=== PATIENT | female | born 1965 | race Caucasian/White ===

== ENCOUNTER 2017-02-06 09:55 | Inpatient (IN) | payer OTHER ==
[2017-02-06 18:24] VITALS: BMI 23.0
--- NOTE | 2017-02-06 19:56 | HP ---
CIWA Score - CIWA Score Nausea/Vomitin Muscle Tremors: 3 Anxiety: 3 Agitation: 3 Paroxysmal Sweats: 2 Orientation: 0-Oriented Tacttile Disturbances: 2-Mild Itch/Numbness/Burn Auditory Disturbances: 2-Mild Harshness/Frighten Visual Disturbances: 2-Mild Sensitivity Headache: 2-Mild CIWA-Ar Total Score: 22 Admission ROS [facility] - HPI Chief Complaint: I NEED HELP TO STOP DRINKING ALCOHOL,KLONOPIN,HEROIN,MMTP 200 MGS/DAY,LAST 280 MGS/DAY,LAST MEDICATED TODAY BIPOLAR DISORDER NICOTINE DEPENDENCE LAST TREATMENT [facility] 11/22/15 TO 11/26/15 DETOX,REHAB FROM 11/26/15 TO 11/28/15 LONGEST PERIOD OF SOBRIETY 8 YEARS Allergies/Adverse Reactions: Allergies Allergy/AdvReac Type Severity Reaction Status Date / Time No Known Allergies Allergy Verified 02/06/17 18:57 - Ebola screening Have you traveled outside of the country in the last 21 days: No Have you had contact with anyone from an Ebola affected area: No Have you been sick,other than usual withdrawal symptoms: No - Review of Systems Constitutional: Chills, Loss of Appetite, Malaise, Night Sweats, Changes in sleep, Weakness, Unintentional Wgt. Loss EENT: reports: Tearing, Nose Congestion Respiratory: reports: No Symptoms reported, Other (ASTHMA) Cardiac: reports: No Symptoms Reported GI: reports: Diarrhea, Nausea, Vomiting, Abdominal cramping : reports: No Symptoms Reported Musculoskeletal: reports: Back Pain, Muscle Pain Integumentary: reports: Dryness Neuro: reports: Headache, Tremors Endocrine: reports: No Symptoms Reported Hematology: reports: No Symptoms Reported Psychiatric: reports: No Sypmtoms Reported, Judgement Intact, Mood/Affect Appropiate, Orientated x3 (BIPOLAR DISORDER) Patient History - Patient Medical History Hx Anemia: Yes (iron pill) Hx Asthma: Yes (ON ALBUTEROL) Hx Chronic Obstructive Pulmonary Disease (COPD): No Hx Cancer: No Hx Cardiac Disorders: No Hx Congestive Heart Failure: No Hx Hypertension: No Hx Hypercholesterolemia: No Hx Pacemaker: No HX Cerebrovascular Accident: No Hx Seizures: No Hx Dementia: No Hx Diabetes: No Hx Gastrointestinal Disorders: Yes Hx Liver Disease: No Hx Genitourinary Disorders: No Hx Sexually Transmitted Disorders: Yes (Syphillis with Tx) Hx Renal Disease (ESRD): No Hx Thyroid Disease: No Hx Human Immunodeficiency Virus (HIV): No (LAST 2016 NEGATIVE) Hx Hepatitis C: Yes (FOLLOW UP WITH PMD) Hx Depression: Yes (ON MED) Hx Suicide Attempt: No Hx Bipolar Disorder: Yes (ON MED) Hx Schizophrenia: No Other Medical History: NO SUICIDAL,NO HOMICIDAL - Patient Surgical History Past Surgical History: Yes Hx Neurologic Surgery: No Hx Cataract Extraction: No Hx Cardiac Surgery: No Hx Lung Surgery: No Hx Breast Surgery: No Hx Breast Biopsy: No Hx Abdominal Surgery: No Hx Appendectomy: No Hx Cholecystectomy: No Hx Genitourinary Surgery: No Hx Section: No Hx Orthopedic Surgery: Yes (BUNION REPAIR 10 years ago RIGHT) Hx Hysterectomy: No Anesthesia Reaction: No - PPD History Previous Implant?: No Documented Results: Negative w/o proof Date: 12/24/14 Results: 0mm - Reproductive History Last Menstrual Period: 05/25/15 Patient : No - Smoking Cessation Smoking history: Current every day smoker Have you smoked in the past 12 months: Yes Aproximately how many cigarettes per day: 3 Hx Chewing Tobacco Use: No Initiated information on smoking cessation: Yes 'Breaking Loose' booklet given: 02/06/17 - Substances Abused Alcohol Route: Oral Frequency: Daily Amount used: liquor- 1 pint, beer- 1 six pack Age of first use: 23 Date of Last Use: 02/06/17 Heroin Route: Injection Frequency: Daily Amount used: 2 bags Age of first use: 23 Date of Last Use: 02/06/17 Cocaine Route: Smoking Frequency: Daily Amount used: 60$ Age of first use: 17 Date of Last Use: 02/06/17 Benzodiazepine (Klonopin) Route: Oral Frequency: Daily Amount used: 1MG Age of first use: 46 Date of Last Use: 02/06/17 Family Disease History - Family Disease History Family Disease History: Other: Father (asthma ), Mother (asthma ) Admission Physical Exam [facility] - Vital Signs Vital Signs: Vital Signs - 24 hr 02/06/17 18:20 Temperature 96.2 F L Pulse Rate 79 Respiratory 20 Rate Blood Pressure 133/65 - Physical General Appearance: Yes: Moderate Distress, Tremorous, Irritable, Sweating, Anxious HEENTM: Yes: Normal ENT Inspection, JAVAN Respiratory: Yes: Lungs Clear, Normal Breath Sounds, No Respiratory Distress Neck: Yes: Within Normal Limits, Supple, Trachea in good position Breast: Yes: Breast Exam Deferred Cardiology: Yes: Within Normal Limits, Regular Rhythm, Regular Rate, S1, S2 Abdominal: Yes: Within Normal Limits, Normal Bowel Sounds, Non Tender, Flat, Soft Genitourinary: Yes: Within Normal Limits Musculoskeletal: Yes: Back pain, Muscle Pain Extremities: Yes: Within Normal Limits, Normal Range of Motion, Tremors Neurological: Yes: Within Normal Limits, student services dean II-XII NML intact, Fully Oriented, Alert, Motor Strength 5/5 Integumentary: Yes: Dry Lymphatic: Yes: Within Normal Limits - Diagnostic (1) Alcohol dependence with uncomplicated withdrawal Current Visit: No Status: Acute (2) Bipolar disorder Current Visit: No Status: Chronic (3) Hepatitis C Current Visit: No Status: Chronic Qualifiers: Viral hepatitis chronicity: chronic Hepatic coma status: without hepatic coma Qualified Code(s): B18.2 - Chronic viral hepatitis C; B18.2 - Chronic viral hepatitis C; B18.2 - Chronic viral hepatitis C; B18.2 - Chronic viral hepatitis C (4) Methadone maintenance therapy patient Current Visit: No Status: Chronic Comment: pt take 230mg daily last dose taken today. pending verification (5) Nicotine dependence Current Visit: No Status: Chronic Qualifiers: Nicotine product type: cigarettes Substance use status: uncomplicated Qualified Code(s): F17.210 - Nicotine dependence, cigarettes, uncomplicated; F17.210 - Nicotine dependence, cigarettes, uncomplicated (6) Opioid dependence Current Visit: No Status: Chronic (7) Tinea pedis Current Visit: No Status: Chronic (8) Uncomplicated sedative, hypnotic or anxiolytic withdrawal Current Visit: Yes Status: Acute (9) Bronchitis Current Visit: Yes Status: Acute Cleared for Admission [facility] - Detox or Rehab [facility] Level of Care: Medically Managed Detox Regimen/Protocol: Valium [facility] Breath Alcohol Content Breath Alcohol Content: 0 Urine Pregancy Test - Result Urine Test Results: Negative- NO Line Present Urine Drug Screen - Results Drug Screen Negative: No Urine Drug Screen Results: CHITRA-Cocaine, OPI-Opiates, BZO-Benzodiazepines, MTD- Methadone
[2017-02-06] MEDS ORDERED: MAGNESIUM HYDROX 2400MG/30ML ORAL SUSPENSION 30 ML CUP PO PRN (20:12)
[2017-02-06] MEDS ORDERED: ACETAMINOPHEN 325 MG TABLET (FP) PO PRN (20:12)
[2017-02-06] MEDS ORDERED: MAG HYDROX/AL HYDROX/SIMETH 30 ML UNIT-DOSE CUP PO PRN (20:12)
[2017-02-06] MEDS ORDERED: diazePAM 5 MG TABLET PO ONE (20:12)
[2017-02-06] MEDS ORDERED: LOPERAMIDE HCL 2 MG CAPSULE PO PRN (20:12)
[2017-02-06] MEDS ORDERED: MAGNESIUM CITRATE 300 ML BOTTLE PO PRN (20:12)
[2017-02-06] MEDS ORDERED: diphenhydrAMINE HCL 50 MG CAPSULE PO PRN (20:12)
[2017-02-06] MEDS ORDERED: IBUPROFEN 400 MG TABLET (FP) PO PRN (20:12)
[2017-02-06] MEDS ORDERED: P-EPHED 60MG/TRIPROLIDI 2.5MG TABLET PO PRN (20:12)
[2017-02-06] MEDS ORDERED: MENTHOL/PHENOL 1 EACH UD MM PRN (20:12)
[2017-02-06] MEDS ORDERED: ALBUTEROL SO4 18 GM HFA INHALER IH PRN (20:16)
[2017-02-06] MEDS: THIAMINE HCL 100 MG TABLET (FP) PO SCH (21:50)
[2017-02-06] MEDS: diazePAM 5 MG TABLET PO SCH (23:02)
[2017-02-06] MEDS: TOLNAFTATE 1% CREAM 15 GM TUBE TP SCH (23:09)
[2017-02-06] MEDS: AMOXICILLIN 500 MG CAPSULE (FP) PO SCH (23:12)
[2017-02-06 23:59] LABS: URINE APPEARANCE SLCLOUDY; URINE BILIRUBIN NEGATIVE (NEGATIVE); URINE BLOOD NEGATIVE (NEGATIVE); URINE COLOR YELLOW; URINE GLUCOSE (UA) NEGATIVE (NEGATIVE); URINE KETONE NEGATIVE (NEGATIVE); URINE LEUK ESTERASE TRACE (NEGATIVE); URINE NITRITE NEGATIVE (NEGATIVE); URINE PROTEIN NEGATIVE (NEGATIVE); URINE UROBILINOGEN NEGATIVE mg/dL (0.2-1.0)
[2017-02-07 00:01] LABS: URINE MUCUS RARE; URINE RBC 4 /hpf (0-3); URINE WBC 2 /hpf (3-5)
[2017-02-07] MEDS: AMOXICILLIN 500 MG CAPSULE (FP) PO SCH ×3 (06:56→22:39)
[2017-02-07] MEDS: diazePAM 5 MG TABLET PO SCH ×3 (06:56→22:40)
[2017-02-07] MEDS ORDERED: METHADONE HCL 40 MG DISPERSABLE TABLET PO ONE (09:57)
[2017-02-07 10:21] LABS: MCH 27.9 pg (25.7-33.7); MCHC 33.6 g/dl (32.0-36.0); MEAN CELL VOLUME 83.1 fl (80-96); MEAN PLT VOLUME 8.2 fl (7.5-11.1); PLATELET COUNT 221 K/MM3 (134-434); RDW 14.8 % (11.6-15.6); WHITE BLOOD COUNT 4.5 K/mm3 (4.0-10.0)
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
[2017-02-07] MEDS: TOLNAFTATE 1% CREAM 15 GM TUBE TP SCH ×2 (10:56→22:40)
[2017-02-07] MEDS: PRENATAL VITAMINS W/ FOLIC ACID TABLET (FP) PO SCH (10:56)
[2017-02-07] MEDS: diazePAM 5 MG TABLET PO PRN (10:56)
[2017-02-07 11:20] LABS: ALBUMIN 2.8 g/dl (3.4-5.0); ALK PHOS 75 U/L (45-117); ANION GAP 6 (8-16); BILIRUBIN,TOTAL 0.3 mg/dL (0.2-1.0); CALCIUM 8.4 mg/dL (8.5-10.1); CO2 27 mmol/L (21-32); CREATININE 0.7 mg/dL (0.55-1.02); GLUCOSE,RANDOM 97 mg/dL (74-106); SGOT/AST 12 U/L (15-37); SGPT/ALT 17 U/L (12-78); TOT PROT 6.2 g/dl (6.4-8.2)
[2017-02-07 11:49] LABS: HIV 1 & 2 AB NEGATIVE; HIV 1 AGp24 NEGATIVE
--- NOTE | 2017-02-07 12:26 | PN ---
[facility] CIWA - CIWA Score Nausea/Vomitin-No Nausea/No Vomiting Muscle Tremors: 3 Anxiety: 3 Agitation: 3 Paroxysmal Sweats: 3 Orientation: 0-Oriented Tacttile Disturbances: 0-None Auditory Disturbances: 0-None Visual Disturbances: 0-None Headache: 0-None Present CIWA-Ar Total Score: 12 S Progress Note (SOAP) Subjective: neuropathy to my right hand i was ordered gabapentin by my doctor and need to take it here agitation anxiety sweats interrupted sleep Objective: 02/07/17 12:25 Vital Signs Temperature 97.7 F 02/07/17 11:22 Pulse Rate 67 02/07/17 11:22 Respiratory Rate 20 02/07/17 11:22 Blood Pressure 114/74 02/07/17 11:22 O2 Sat by Pulse Oximetry (%) Laboratory Tests 02/06/17 02/07/17 02/07/17 23:45 07:00 07:00 WBC 4.5 D RBC 4.12 Hgb 11.5 Hct 34.2 MCV 83.1 MCH 27.9 MCHC 33.6 RDW 14.8 D Plt Count 221 MPV 8.2 Sodium Potassium Chloride Carbon Dioxide Anion Gap BUN Creatinine Creat Clearance w eGFR Random Glucose Calcium Total Bilirubin AST ALT Alkaline Phosphatase Ammonia Total Protein Albumin Urine Color Yellow Urine Appearance Slcloudy Urine pH 5.0 Ur Specific [place] >= 1.030 H Urine Protein Negative Urine Glucose (UA) Negative Urine Ketones Negative Urine Blood Negative Urine Nitrite Negative Urine Bilirubin Negative Urine Urobilinogen Negative Urine RBC 4 Urine WBC 2 Ur Epithelial Cells Rare Urine Mucus Rare RPR Titer HIV 1&2 Antibody Screen Negative HIV P24 Antigen Negative 02/07/17 02/07/17 02/07/17 07:00 07:00 07:00 WBC RBC Hgb Hct MCV MCH MCHC RDW Plt Count MPV Sodium 142 Potassium 4.4 D Chloride 109 H Carbon Dioxide 27 Anion Gap 6 L BUN 22 H D Creatinine 0.7 D Creat Clearance w eGFR > 60 Random Glucose 97 Calcium 8.4 L Total Bilirubin 0.3 AST 12 L D ALT 17 D Alkaline Phosphatase 75 D Ammonia 58.93 H Total Protein 6.2 L Albumin 2.8 L Urine Color Urine Appearance Urine pH Ur Specific [place] Urine Protein Urine Glucose (UA) Urine Ketones Urine Blood Urine Nitrite Urine Bilirubin Urine Urobilinogen Urine RBC Urine WBC Ur Epithelial Cells Urine Mucus RPR Titer Nonreactive HIV 1&2 Antibody Screen HIV P24 Antigen aaox3 ambulating no acute distress labs noted no further tx for ammonia level ordered. pt is not confused. Assessment: 02/07/17 12:26 withdrawal sx Plan: continue detox gabapentin 100mg tid increase fluids
[2017-02-07] MEDS: GABAPENTIN 100 MG CAPSULE (FP) PO SCH ×2 (13:11→22:39)
--- NOTE | 2017-02-07 14:21 | EKG ---
Test Reason : Blood Pressure : / mmHG Vent. Rate : 060 BPM Atrial Rate : 060 BPM P-R Int : 142 ms QRS Dur : 086 ms QT Int : 468 ms P-R-T Axes : 007 080 036 degrees QTc Int : 468 ms NORMAL SINUS RHYTHM NORMAL ECG NO PREVIOUS ECGS AVAILABLE Confirmed by SARAH CRANDALL MD ([id number]) on 02/07/2017 2:21:10 PM Referred By: Confirmed By:SARAH CRANDALL MD
[2017-02-07] MEDS: ZOLPIDEM TARTRATE 5 MG TABLET PO PRN (22:39)
[2017-02-07] MEDS: MIRTAZAPINE 30 MG TABLET (FP) PO SCH ×2 (22:39→22:42)
[2017-02-07] MEDS: THIAMINE HCL 100 MG TABLET (FP) PO SCH (22:40)
[2017-02-08] MEDS: GABAPENTIN 100 MG CAPSULE (FP) PO SCH ×3 (05:35→22:32)
[2017-02-08] MEDS: METHADONE HCL 40 MG DISPERSABLE TABLET PO SCH (05:36)
[2017-02-08] MEDS: guaiFENesin/D-METHORPHAN HB 10 ML UNIT-DOSE CUPS PO PRN ×2 (05:39→10:56)
[2017-02-08] MEDS: AMOXICILLIN 500 MG CAPSULE (FP) PO SCH ×3 (07:25→22:32)
[2017-02-08] MEDS: TOLNAFTATE 1% CREAM 15 GM TUBE TP SCH ×2 (10:55→23:53)
[2017-02-08] MEDS: PRENATAL VITAMINS W/ FOLIC ACID TABLET (FP) PO SCH (10:55)
[2017-02-08] MEDS: diazePAM 5 MG TABLET PO SCH ×2 (10:55→22:32)
--- NOTE | 2017-02-08 12:32 | PN ---
[facility] CIWA - CIWA Score Nausea/Vomitin-No Nausea/No Vomiting Muscle Tremors: 3 Anxiety: 2 Agitation: 4-Moderately Restless Paroxysmal Sweats: 2 Orientation: 0-Oriented Tacttile Disturbances: 0-None Auditory Disturbances: 0-None Visual Disturbances: 0-None Headache: 0-None Present CIWA-Ar Total Score: 11 S Progress Note (SOAP) Subjective: anxiety restless sweats Objective: 02/08/17 12:31 Vital Signs Temperature 98.2 F 02/08/17 10:00 Pulse Rate 65 02/08/17 10:00 Respiratory Rate 16 02/08/17 10:00 Blood Pressure 91/54 02/08/17 10:00 O2 Sat by Pulse Oximetry (%) Laboratory Tests 02/06/17 02/07/17 02/07/17 23:45 07:00 07:00 WBC 4.5 D RBC 4.12 Hgb 11.5 Hct 34.2 MCV 83.1 MCH 27.9 MCHC 33.6 RDW 14.8 D Plt Count 221 MPV 8.2 Sodium Potassium Chloride Carbon Dioxide Anion Gap BUN Creatinine Creat Clearance w eGFR Random Glucose Calcium Total Bilirubin AST ALT Alkaline Phosphatase Ammonia Total Protein Albumin Urine Color Yellow Urine Appearance Slcloudy Urine pH 5.0 Ur Specific [place] >= 1.030 H Urine Protein Negative Urine Glucose (UA) Negative Urine Ketones Negative Urine Blood Negative Urine Nitrite Negative Urine Bilirubin Negative Urine Urobilinogen Negative Urine RBC 4 Urine WBC 2 Ur Epithelial Cells Rare Urine Mucus Rare RPR Titer HIV 1&2 Antibody Screen Negative HIV P24 Antigen Negative 02/07/17 02/07/17 02/07/17 07:00 07:00 07:00 WBC RBC Hgb Hct MCV MCH MCHC RDW Plt Count MPV Sodium 142 Potassium 4.4 D Chloride 109 H Carbon Dioxide 27 Anion Gap 6 L BUN 22 H D Creatinine 0.7 D Creat Clearance w eGFR > 60 Random Glucose 97 Calcium 8.4 L Total Bilirubin 0.3 AST 12 L D ALT 17 D Alkaline Phosphatase 75 D Ammonia 58.93 H Total Protein 6.2 L Albumin 2.8 L Urine Color Urine Appearance Urine pH Ur Specific [place] Urine Protein Urine Glucose (UA) Urine Ketones Urine Blood Urine Nitrite Urine Bilirubin Urine Urobilinogen Urine RBC Urine WBC Ur Epithelial Cells Urine Mucus RPR Titer Nonreactive HIV 1&2 Antibody Screen HIV P24 Antigen aaox3 ambulating no acute distress Assessment: 02/08/17 12:32 withdrawal sx Plan: continue detox increase fluids
[2017-02-08] MEDS: diazePAM 5 MG TABLET PO PRN (14:52)
[2017-02-08] MEDS: ZOLPIDEM TARTRATE 5 MG TABLET PO PRN (22:32)
[2017-02-08] MEDS: MIRTAZAPINE 30 MG TABLET (FP) PO SCH (22:32)
[2017-02-08] MEDS: THIAMINE HCL 100 MG TABLET (FP) PO SCH (22:32)
[2017-02-09] MEDS: GABAPENTIN 100 MG CAPSULE (FP) PO SCH ×3 (06:01→22:50)
[2017-02-09] MEDS: AMOXICILLIN 500 MG CAPSULE (FP) PO SCH ×3 (06:01→22:50)
[2017-02-09] MEDS: METHADONE HCL 40 MG DISPERSABLE TABLET PO SCH (06:02)
[2017-02-09] MEDS: PRENATAL VITAMINS W/ FOLIC ACID TABLET (FP) PO SCH (10:56)
[2017-02-09] MEDS: diazePAM 5 MG TABLET PO SCH ×2 (10:56→22:51)
[2017-02-09] MEDS: TOLNAFTATE 1% CREAM 15 GM TUBE TP SCH ×2 (10:56→22:51)
[2017-02-09] MEDS: guaiFENesin/D-METHORPHAN HB 10 ML UNIT-DOSE CUPS PO PRN (10:57)
--- NOTE | 2017-02-09 14:14 | PN ---
[facility] Progress Note (SOAP) Subjective: Sweating,interrupted sleep,restless Objective: 02/09/17 14:12 Vital Signs - 8 hr 02/09/17 10:00 Temperature 97.9 F Pulse Rate 67 Respiratory 18 Rate Blood Pressure 103/67 Laboratory Tests 02/06/17 02/07/17 02/07/17 23:45 07:00 07:00 WBC 4.5 D RBC 4.12 Hgb 11.5 Hct 34.2 MCV 83.1 MCH 27.9 MCHC 33.6 RDW 14.8 D Plt Count 221 MPV 8.2 Sodium Potassium Chloride Carbon Dioxide Anion Gap BUN Creatinine Creat Clearance w eGFR Random Glucose Calcium Total Bilirubin AST ALT Alkaline Phosphatase Ammonia Total Protein Albumin Urine Color Yellow Urine Appearance Slcloudy Urine pH 5.0 Ur Specific [place] >= 1.030 H Urine Protein Negative Urine Glucose (UA) Negative Urine Ketones Negative Urine Blood Negative Urine Nitrite Negative Urine Bilirubin Negative Urine Urobilinogen Negative Urine RBC 4 Urine WBC 2 Ur Epithelial Cells Rare Urine Mucus Rare RPR Titer HIV 1&2 Antibody Screen Negative HIV P24 Antigen Negative 02/07/17 02/07/17 02/07/17 07:00 07:00 07:00 WBC RBC Hgb Hct MCV MCH MCHC RDW Plt Count MPV Sodium 142 Potassium 4.4 D Chloride 109 H Carbon Dioxide 27 Anion Gap 6 L BUN 22 H D Creatinine 0.7 D Creat Clearance w eGFR > 60 Random Glucose 97 Calcium 8.4 L Total Bilirubin 0.3 AST 12 L D ALT 17 D Alkaline Phosphatase 75 D Ammonia 58.93 H Total Protein 6.2 L Albumin 2.8 L Urine Color Urine Appearance Urine pH Ur Specific [place] Urine Protein Urine Glucose (UA) Urine Ketones Urine Blood Urine Nitrite Urine Bilirubin Urine Urobilinogen Urine RBC Urine WBC Ur Epithelial Cells Urine Mucus RPR Titer Nonreactive HIV 1&2 Antibody Screen HIV P24 Antigen labs noted Assessment: 02/09/17 14:13 Withdrawal sx. Plan: Continue detox
[2017-02-09] MEDS: ZOLPIDEM TARTRATE 5 MG TABLET PO PRN (22:50)
[2017-02-09] MEDS: THIAMINE HCL 100 MG TABLET (FP) PO SCH (22:51)
[2017-02-09] MEDS: MIRTAZAPINE 30 MG TABLET (FP) PO SCH (22:52)
[2017-02-10] MEDS: GABAPENTIN 100 MG CAPSULE (FP) PO SCH (06:05)
[2017-02-10] MEDS: AMOXICILLIN 500 MG CAPSULE (FP) PO SCH (06:05)
[2017-02-10] MEDS: METHADONE HCL 40 MG DISPERSABLE TABLET PO SCH (06:10)
[2017-02-10 07:01] VITALS: BP 128/68; PULSE 89; TEMP 97.9
[2017-02-10] MEDS: guaiFENesin/D-METHORPHAN HB 10 ML UNIT-DOSE CUPS PO PRN (07:18)
--- NOTE | 2017-02-10 09:02 | DS ---
[facility] Detox Discharge Summary Admission Date: 02/06/17 Discharge Date: 02/11/17 - History Present History: Alcohol Dependence, Sedative Dependence Additional Comments: FOLLOW UP WITH AFTER CARE PROGRAM ARRANGEMENT Pertinent Past History: HEPATITIS C NICOTINE DEPENDENCE [facility] - Physical Exam Results Vital Signs: Vital Signs Temperature 97.9 F 02/10/17 06:00 Pulse Rate 89 02/10/17 06:00 Respiratory Rate 18 02/10/17 06:00 Blood Pressure 128/68 02/10/17 06:00 O2 Sat by Pulse Oximetry (%) Pertinent Admission Physical Exam Findings: WITHDRAWAL SYMPTOM - Treatment Hospital Course: Detox Protocol Followed, Detoxed Safely, Responded well, Discharged Condition Good, Rehab Referral Accepted Patient has Accepted a Rehab Referral to: [facility] - Medication Discharge Medications: Ambulatory Orders Clonazepam [Klonopin] 2 mg PO BID 11/22/15 Mirtazapine [Remeron -] 30 mg PO HS #30 tablet 11/23/15 Albuterol Sulfate Inhaler - [Ventolin Hfa Inhaler -] 2 inh PO Q4H PRN 11/26/15 Lactulose (Oral Use) [Cephulac -] 20 gm PO TID 7 Days 11/26/15 Methadone [Dolophine -] 280 mg PO DAILY 11/26/15 Mirtazapine [Remeron -] 30 mg PO HS #30 tablet 02/07/17 - Diagnosis (1) Alcohol dependence with uncomplicated withdrawal Current Visit: No Status: Acute (2) Bipolar disorder Current Visit: No Status: Chronic (3) Hepatitis C Current Visit: Yes Status: Chronic Qualifiers: Viral hepatitis chronicity: chronic Hepatic coma status: without hepatic coma Qualified Code(s): B18.2 - Chronic viral hepatitis C; B18.2 - Chronic viral hepatitis C; B18.2 - Chronic viral hepatitis C; B18.2 - Chronic viral hepatitis C (4) Methadone maintenance therapy patient Current Visit: Yes Status: Chronic (5) Nicotine dependence Current Visit: No Status: Chronic Qualifiers: Nicotine product type: cigarettes Substance use status: uncomplicated Qualified Code(s): F17.210 - Nicotine dependence, cigarettes, uncomplicated; F17.210 - Nicotine dependence, cigarettes, uncomplicated (6) Opioid dependence Current Visit: No Status: Chronic (7) Tinea pedis Current Visit: Yes Status: Chronic (8) Uncomplicated sedative, hypnotic or anxiolytic withdrawal Current Visit: Yes Status: Acute (9) Bronchitis Current Visit: Yes Status: Acute - AMA Did Patient Leave Against Medical Advice: No
[2017-02-10] MEDS: PRENATAL VITAMINS W/ FOLIC ACID TABLET (FP) PO SCH (09:03)
[2017-02-10] MEDS ORDERED: diazePAM 5 MG TABLET PO SCH (10:00)
== END 2017-02-10 09:32 | disposition home or self-care (01) | DRG 773 ==
LOC: YASAS 09:55 → Y6N 18:45
PROVIDERS: ADMIT Internal Medicine; ATTEND Internal Medicine
PROC: HZ2ZZZZ Detoxification Services for Substance Abuse Treatment (ICD-10-PCS; principal; 2017-02-06)
DX: F10.230 Alcohol dependence with withdrawal, uncomplicated (principal); F13.230 Sedative, hypnotic or anxiolytic dependence with withdrawal, uncomplicated; F11.20 Opioid dependence, uncomplicated; F14.20 Cocaine dependence, uncomplicated; F17.210 Nicotine dependence, cigarettes, uncomplicated; F31.9 Bipolar disorder, unspecified; J40 Bronchitis, not specified as acute or chronic; J45.909 Unspecified asthma, uncomplicated; B18.2 Chronic viral hepatitis C; D64.9 Anemia, unspecified; Z87.42 Personal history of other diseases of the female genital tract
CPT/HCPCS: 36415; 80053; 81003; 81015; 82140; 85027; 86593; 87389; 93005; 93010

== ENCOUNTER 2017-02-15 10:17 | Inpatient (IN) | payer OTHER ==
[2017-02-15 11:44] VITALS: BMI 25.5
--- NOTE | 2017-02-15 13:42 | HP ---
Admission [facility] Allergies/Adverse Reactions: Allergies Allergy/AdvReac Type Severity Reaction Status Date / Time No Known Allergies Allergy Verified 02/15/17 12:09 - Ebola screening Have you traveled outside of the country in the last 21 days: No Have you had contact with anyone from an Ebola affected area: No Have you been sick,other than usual withdrawal symptoms: No Do you have a fever: No Patient History - Patient Medical History Hx Anemia: Yes (iron pill) Hx Asthma: Yes (ON ALBUTEROL) Hx Chronic Obstructive Pulmonary Disease (COPD): No Hx Cancer: No Hx Cardiac Disorders: No Hx Congestive Heart Failure: No Hx Hypertension: No Hx Hypercholesterolemia: No Hx Pacemaker: No HX Cerebrovascular Accident: No Hx Seizures: No Hx Dementia: No Hx Diabetes: No Hx Gastrointestinal Disorders: Yes Hx Liver Disease: No Hx Genitourinary Disorders: No Hx Sexually Transmitted Disorders: Yes (Syphillis with Tx) Hx Renal Disease (ESRD): No Hx Thyroid Disease: No Hx Human Immunodeficiency Virus (HIV): No (LAST 2016 NEGATIVE) Hx Hepatitis C: Yes (FOLLOW UP WITH PMD) Hx Depression: Yes (ON MED) Hx Suicide Attempt: No Hx Bipolar Disorder: Yes (ON MED) Hx Schizophrenia: No - Patient Surgical History Past Surgical History: Yes Hx Neurologic Surgery: No Hx Cataract Extraction: No Hx Cardiac Surgery: No Hx Lung Surgery: No Hx Breast Surgery: No Hx Breast Biopsy: No Hx Abdominal Surgery: No Hx Appendectomy: No Hx Cholecystectomy: No Hx Genitourinary Surgery: No Hx Section: No Hx Orthopedic Surgery: Yes (BUNION REPAIR 10 years ago RIGHT) Hx Hysterectomy: No Anesthesia Reaction: No - PPD History Date: 02/08/17 Results: 0mm - Reproductive History Last Menstrual Period: 05/25/15 - Smoking Cessation Smoking history: Current every day smoker Have you smoked in the past 12 months: Yes Aproximately how many cigarettes per day: 3 Hx Chewing Tobacco Use: No Initiated information on smoking cessation: Yes 'Breaking Loose' booklet given: 02/15/17 - Substances Abused Alcohol Route: Oral Frequency: Daily Amount used: 6PK BEER Age of first use: 14 Date of Last Use: 02/13/17 Crack Route: Smoking Frequency: Daily Amount used: $50 Age of first use: 26 Date of Last Use: 02/15/17 Heroin Route: Injection Frequency: 1-2 times per week Amount used: 10 BAGS Age of first use: 13 Date of Last Use: 02/14/17 Family Disease History - Family Disease History Family Disease History: Other: Father (asthma ), Mother (asthma ) Admission Physical Exam [facility] - Vital Signs Vital Signs: Vital Signs - 24 hr 02/15/17 11:37 Temperature 97.4 F L Pulse Rate 79 Respiratory 20 Rate Blood Pressure 111/67 Cleared for Admission [facility] - Detox or Rehab Clae[facility] for Rehab Admission: Yes [facility] Breath Alcohol Content Breath Alcohol Content: 0 Urine Pregancy Test - Result Urine Test Results: Negative- NO Line Present Urine Drug Screen - Results Drug Screen Negative: No Urine Drug Screen Results: CHITRA-Cocaine, OPI-Opiates, BZO-Benzodiazepines, MTD- Methadone Inpatient Rehab Admission - Initial Determination Are CD services needed?: Yes Free of communicable disease: Yes Not in need of hospitalization: Yes - Rehab Admission Criteria Poor recovery environment: Yes Comorbidities: Yes Patient is meeting Inpatient Rehab admission criteria:: Yes
--- NOTE | 2017-02-15 13:45 | HP ---
[facility] Re[facility] Assess/Revision - Admission History Admitted to Rehab from: [address] [place] Date of Admission to Rehab: 02/15/17 - Vital signs Vital Signs: Vital Signs Period Temp Pulse Resp BP Sys/[place] Pulse Ox Last 24 Hr 97.4 F 79 20 111/67 - Findings Detox History & Physical reviewed: Yes Concur with findings: Yes (for rehab as ptotocol)
[2017-02-15] MEDS ORDERED: ALBUTEROL SO4 18 GM HFA INHALER IH PRN ×2 (13:48→15:44)
[2017-02-15] MEDS ORDERED: PNEUMOC 13-VAL CONJ-DIP CRM/PF 0.5 ML DISP.SYRIN IM ONE (15:38)
[2017-02-15] MEDS ORDERED: diphenhydrAMINE HCL 50 MG CAPSULE PO PRN (15:43)
[2017-02-15] MEDS ORDERED: IBUPROFEN 400 MG TABLET (FP) PO PRN (15:43)
[2017-02-15] MEDS ORDERED: ACETAMINOPHEN 325 MG TABLET (FP) PO PRN (15:43)
[2017-02-15] MEDS ORDERED: MAGNESIUM CITRATE 300 ML BOTTLE PO PRN (15:43)
[2017-02-15] MEDS ORDERED: P-EPHED 60MG/TRIPROLIDI 2.5MG TABLET PO PRN (15:43)
[2017-02-15] MEDS ORDERED: MAG HYDROX/AL HYDROX/SIMETH 30 ML UNIT-DOSE CUP PO PRN (15:43)
[2017-02-15] MEDS ORDERED: MAGNESIUM HYDROX 2400MG/30ML ORAL SUSPENSION 30 ML CUP PO PRN (15:43)
[2017-02-15] MEDS ORDERED: MENTHOL/PHENOL 1 EACH UD MM PRN (15:43)
[2017-02-15] MEDS ORDERED: LOPERAMIDE HCL 2 MG CAPSULE PO PRN (15:43)
[2017-02-15] MEDS: NICOTINE 14 MG/24 HOURS TOPICAL PATCH TD SCH (17:19)
[2017-02-15] MEDS: guaiFENesin/D-METHORPHAN HB 10 ML UNIT-DOSE CUPS PO PRN (21:38)
[2017-02-15] MEDS: THIAMINE HCL 100 MG TABLET (FP) PO SCH (21:40)
[2017-02-16] MEDS: guaiFENesin/D-METHORPHAN HB 10 ML UNIT-DOSE CUPS PO PRN ×2 (06:06→21:27)
[2017-02-16] MEDS: METHADONE HCL 40 MG DISPERSABLE TABLET PO SCH (06:22)
[2017-02-16] MEDS: PRENATAL VITAMINS W/ FOLIC ACID TABLET (FP) PO SCH (09:35)
[2017-02-16] MEDS: NICOTINE 14 MG/24 HOURS TOPICAL PATCH TD SCH (09:37)
[2017-02-16] MEDS ORDERED: PNEUMOCOCCAL 23 VACCINE 0.5 ML VIAL IM ONE (12:00)
[2017-02-16] MEDS ORDERED: FLU VACCINE QUAD 60 MCG/0.5 ML (MDV 17-18) IM ONE (12:00)
[2017-02-16 13:25] LABS: HIV 1 & 2 AB NEGATIVE; HIV 1 AGp24 NEGATIVE
[2017-02-16] MEDS: hydrOXYzine PAMOATE 50 MG CAPSULE (FP) PO PRN (17:21)
--- NOTE | 2017-02-16 18:40 | PN ---
[facility] Progress Note Note: Psychiatry Attending's seasonal greenery bundler note : Called to enter order for remeron. Patient is already known to this scientific technical writer. Was on remeron 30 mg/hs while on [address] Weinstein's note of 02/07/17 for details. Plan : Remeron 15 mg po hs.Ordered. Went to [address].Met with patient. In the presence of two nurses on duty. Ms Blanco is clearly medication-seeking. Manipulative and impulsive.Patient is redirected. She abruptly ended the meeting.Went to her room.
[2017-02-16] MEDS: MIRTAZAPINE 15 MG TABLET (FP) PO SCH (21:27)
[2017-02-16] MEDS: THIAMINE HCL 100 MG TABLET (FP) PO SCH (21:27)
[2017-02-17] MEDS: guaiFENesin/D-METHORPHAN HB 10 ML UNIT-DOSE CUPS PO PRN ×2 (06:09→21:21)
[2017-02-17] MEDS: METHADONE HCL 40 MG DISPERSABLE TABLET PO SCH (06:09)
[2017-02-17] MEDS: PRENATAL VITAMINS W/ FOLIC ACID TABLET (FP) PO SCH (10:19)
[2017-02-17] MEDS: NICOTINE 14 MG/24 HOURS TOPICAL PATCH TD SCH (10:20)
[2017-02-17] MEDS: hydrOXYzine PAMOATE 50 MG CAPSULE (FP) PO PRN ×3 (10:20→18:51)
[2017-02-17] MEDS: MIRTAZAPINE 15 MG TABLET (FP) PO SCH (21:20)
[2017-02-17] MEDS: THIAMINE HCL 100 MG TABLET (FP) PO SCH (21:20)
[2017-02-18] MEDS: hydrOXYzine PAMOATE 50 MG CAPSULE (FP) PO PRN (04:48)
[2017-02-18] MEDS: METHADONE HCL 40 MG DISPERSABLE TABLET PO SCH (06:06)
[2017-02-18 07:28] VITALS: BP 118/78; PULSE 76; TEMP 97.9
[2017-02-18] MEDS: NICOTINE 14 MG/24 HOURS TOPICAL PATCH TD SCH (09:17)
[2017-02-18] MEDS: PRENATAL VITAMINS W/ FOLIC ACID TABLET (FP) PO SCH (09:17)
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
--- NOTE | 2017-02-19 07:24 | EKG ---
Test Reason : Blood Pressure : / mmHG Vent. Rate : 059 BPM Atrial Rate : 059 BPM P-R Int : 142 ms QRS Dur : 088 ms QT Int : 470 ms P-R-T Axes : 000 073 038 degrees QTc Int : 465 ms SINUS BRADYCARDIA OTHERWISE NORMAL ECG WHEN COMPARED WITH ECG OF 06-FEB-2017 21:01, NO SIGNIFICANT CHANGE WAS FOUND Confirmed by LAURIE PARSONS MD ([id number]) on 02/19/2017 7:23:58 AM Referred By: Ame Briones Confirmed By:LAURIE PARSONS MD
== END 2017-02-18 10:21 | disposition left against medical advice (07) | DRG 770 ==
LOC: YASAS 10:17 → Y3E 13:54
PROVIDERS: ADMIT Psychiatry & Neurology Psychiatry; ATTEND Psychiatry & Neurology Psychiatry
PROC: HZ42ZZZ Group Counseling for Substance Abuse Treatment, Cognitive-Behavioral (ICD-10-PCS; principal; 2017-02-15)
DX: F13.20 Sedative, hypnotic or anxiolytic dependence, uncomplicated (principal); F10.20 Alcohol dependence, uncomplicated; F14.20 Cocaine dependence, uncomplicated; F31.9 Bipolar disorder, unspecified; B18.2 Chronic viral hepatitis C; R55 Syncope and collapse; J20.9 Acute bronchitis, unspecified; Z87.42 Personal history of other diseases of the female genital tract
CPT/HCPCS: 36415; 87389; 93005; 93010

== ENCOUNTER 2018-07-01 11:43 | Inpatient (IN) | payer OTHER ==
[2018-07-01 13:26] VITALS: BMI 23.8
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
[2018-07-01] MEDS ORDERED: NICOTINE POLACRILEX 2 MG GUM BC PRN (14:03)
[2018-07-01] MEDS ORDERED: MAG HYDROX/AL HYDROX/SIMETH 30 ML UNIT-DOSE CUP PO PRN (14:03)
[2018-07-01] MEDS ORDERED: ACETAMINOPHEN 325 MG TABLET (FP) PO PRN (14:03)
[2018-07-01] MEDS ORDERED: IBUPROFEN 400 MG TABLET (FP) PO PRN (14:03)
[2018-07-01] MEDS ORDERED: MAGNESIUM CITRATE 300 ML BOTTLE PO PRN (14:03)
[2018-07-01] MEDS ORDERED: MENTHOL/PHENOL 1 EACH UD MM PRN (14:03)
[2018-07-01] MEDS ORDERED: chlordiazePOXIDE HCL 25 MG CAPSULE PO PRN (14:03)
[2018-07-01] MEDS ORDERED: MAGNESIUM HYDROX 2400MG/30ML ORAL SUSPENSION 30 ML CUP PO PRN (14:03)
[2018-07-01] MEDS ORDERED: ALBUTEROL SO4 0.083% IH SOL 2.5 MG/3 ML VIAL.NEB. NEB PRN (14:06)
[2018-07-01] MEDS: chlordiazePOXIDE HCL 25 MG CAPSULE PO SCH ×2 (18:08→22:16)
[2018-07-01] MEDS ORDERED: MELATONIN 5 MG TABLETS PO PRN (22:00)
[2018-07-01] MEDS: THIAMINE HCL 100 MG TABLET (FP) PO SCH (22:16)
[2018-07-02] MEDS: chlordiazePOXIDE HCL 25 MG CAPSULE PO SCH ×4 (05:37→22:13)
--- NOTE | 2018-07-02 07:49 | CONSULT ---
[facility] Psychiatric Consult - Data Date of interview: 07/02/18 Admission source: [facility] Identifying data: This is a 53 years old female, , childless, living with family, unemployed, on SSI support, with psychiatric hospitalization history is here requesting detox Patient reports history of Bipolar Disorder, history of Alcohol, Benzodiazepins and Nicotine dependence. Currently on MMTP 175mg/day Substance Abuse History: - Smoking Cessation. Smoking history: Current every day smoker. Have you smoked in the past 12 months: Yes. Aproximately how many cigarettes per day: 3. Hx Chewing Tobacco Use: No. Initiated information on smoking cessation: No. - Substances Abused. Alcohol. Route: Oral. Frequency: Daily. Amount used: beer - 2 six pack. Age of first use: 15. Date of Last Use: 07/01/18 Medical History: HepC+, Cervical back pain, Chronic bronchitis history, MMTP 175 /day Psychiatric History: Patient reports history of Bipolar Disorder, as per chart patient had a suicidal attempt by OD on 08/2017, patient reports it was not a suicidal attempt, it was just overdaose with street drugs. Debies suicidal, nomicidal history. Currently on: Buspar 10mg po bid. Remeron 30mg po qhs. Gabapentin 600mg po tid Physical/Sexual Abuse/Trauma History: Denies Additional Comment: Buspar 10mg po bid. Remeron 30mg po qhs. Gabapentin 600mg po tid Mental Status Exam - Mental Status Exam Alert and Oriented to: Person Cognitive Function: Fair Patient Appearance: Unkempt Mood: Apprehensive Affect: Mood Congruent Patient Behavior: Cooperative Speech Pattern: Appropriate Voice Loudness: Mildly Soft/Quiet Thought Process: Circumstantial, Goal Oriented Thought Disorder: Being Controlled Hallucinations: Denies Suicidal Ideation: Denies Homicidal Ideation: Denies Insight/Judgement: Fair Sleep: Difficulty falling asleep Appetite: Fair Muscle strength/Tone: Mild Hypotonicity Gait/Station: Normal Additional Comments: Buspar 10mg po bid. Remeron 30mg po qhs. Gabapentin 600mg po tid Psychiatric Findings - Problem List ([place] 1, 2,3) (1) Alcohol dependence with uncomplicated withdrawal Current Visit: No Status: Acute (2) Uncomplicated sedative, hypnotic or anxiolytic withdrawal Current Visit: No Status: Acute (3) Alcohol dependence Current Visit: No Status: Chronic (4) Benzodiazepine dependence Current Visit: No Status: Chronic (5) Bipolar disorder Current Visit: No Status: Chronic (6) Cocaine dependence Current Visit: No Status: Chronic Qualifiers: Substance use status: uncomplicated Qualified Code(s): F14.20 - Cocaine dependence, uncomplicated (7) Cocaine dependence in controlled environment Current Visit: No Status: Chronic (8) Cocaine dependence, continuous use Current Visit: No Status: Chronic (9) Methadone maintenance therapy patient Current Visit: No Status: Chronic Comment: pt take 75 mg daily last dose taken today. pending verification (10) Opioid dependence Current Visit: No Status: Chronic (11) Cervical neck pain with evidence of disc disease Current Visit: No Status: Chronic (12) Chronic bronchitis Current Visit: No Status: Chronic Qualifiers: Chronic bronchitis type: simple Qualified Code(s): J41.0 - Simple chronic bronchitis (13) Hepatitis C Current Visit: No Status: Chronic Qualifiers: Viral hepatitis chronicity: chronic Hepatic coma status: without hepatic coma Qualified Code(s): B18.2 - Chronic viral hepatitis C - Initial Treatment Plan Initial Treatment Plan: Buspar 10mg po bid. Remeron 30mg po qhs. Gabapentin 600mg po tid
[2018-07-02] MEDS ORDERED: METHADONE HCL 10 MG TABLET PO ONE (08:57)
[2018-07-02] MEDS ORDERED: METHADONE HCL 5 MG TABLET ONE (09:41)
[2018-07-02] MEDS ORDERED: METHADONE HCL 10 MG TABLET ONE (09:42)
[2018-07-02] MEDS ORDERED: METHADONE HCL 40 MG DISPERSABLE TABLET ONE (09:42)
[2018-07-02] MEDS ORDERED: METHADONE 160 MG, METHADONE 10 MG, METHADONE 5 MG PO ONE (09:45)
[2018-07-02] MEDS: PRENATAL VITAMINS W/ FOLIC ACID TABLET (FP) PO SCH (10:37)
[2018-07-02] MEDS: busPIRone HCL 10 MG TABLET (FP) PO SCH ×2 (10:37→22:13)
[2018-07-02] MEDS ORDERED: COLLOIDAL OATMEAL 1 BAR EACH TP PRN (11:14)
--- NOTE | 2018-07-02 11:14 | PN ---
S CIWA - CIWA Score Nausea/Vomitin-No Nausea/No Vomiting Muscle Tremors: 4-Moderate,w/Arms Extend Anxiety: 3 Agitation: 3 Paroxysmal Sweats: 3 Orientation: 0-Oriented Tacttile Disturbances: 0-None Auditory Disturbances: 0-None Visual Disturbances: 0-None Headache: 0-None Present CIWA-Ar Total Score: 13 S Progress Note (SOAP) Subjective: dry itchy skin sweats irritable agitation teary watery eye Objective: 07/02/18 11:11 Vital Signs Temperature 98.2 F 07/02/18 09:31 Pulse Rate 75 07/02/18 09:31 Respiratory Rate 18 07/02/18 09:31 Blood Pressure 100/56 L 07/02/18 09:31 O2 Sat by Pulse Oximetry (%) labs pending aaox3 ambulating no acute distress Assessment: 07/02/18 11:12 withdrawal sx Plan: continue detox increase fluids aveeno soap lac-hydrin lotion
[2018-07-02] MEDS: AMMONIUM LACTATE 12% LOTION 225 GM BOTTLE TP SCH ×2 (12:34→22:13)
[2018-07-02 12:41] LABS: HEMATOCRIT 33.6 % (32.4-45.2); HEMOGLOBIN 11.4 GM/dL (10.7-15.3); MCH 29.7 pg (25.7-33.7); MCHC 33.8 g/dl (32.0-36.0); MEAN CELL VOLUME 87.9 fl (80-96); MEAN PLT VOLUME 8.1 fl (7.5-11.1); PLATELET COUNT 261 K/MM3 (134-434); RBC 3.83 M/mm3 (3.60-5.2); RDW 14.8 % (11.6-15.6); WHITE BLOOD COUNT 5.7 K/mm3 (4.0-10.0)
[2018-07-02 13:09] LABS: ALBUMIN 3.2 g/dl (3.4-5.0); ALK PHOS 85 U/L (45-117); ANION GAP 6 MMOL/L (8-16); BILIRUBIN,TOTAL 0.2 mg/dL (0.2-1); BLOOD UREA NITROGEN 29 mg/dL (7-18); CALCIUM 8.1 mg/dL (8.5-10.1); CHLORIDE 106 mmol/L (98-107); CO2 27 mmol/L (21-32); CREATININE 0.9 mg/dL (0.55-1.3); GLUCOSE,RANDOM 84 mg/dL (74-106); SGOT/AST 12 U/L (15-37); SGPT/ALT 17 U/L (13-61); SODIUM 139 mmol/L (136-145); TOT PROT 6.8 g/dl (6.4-8.2)
[2018-07-02] MEDS: GABAPENTIN 300 MG CAPSULE (FP) PO SCH ×2 (14:27→22:13)
[2018-07-02] MEDS ORDERED: MIRTAZAPINE 30 MG TABLET (FP) PO SCH (22:00)
[2018-07-02] MEDS: THIAMINE HCL 100 MG TABLET (FP) PO SCH (22:13)
[2018-07-03] MEDS ORDERED: METHADONE HCL 5 MG TABLET ONE (04:26)
[2018-07-03] MEDS ORDERED: METHADONE HCL 40 MG DISPERSABLE TABLET ONE (04:26)
[2018-07-03] MEDS ORDERED: METHADONE HCL 10 MG TABLET ONE (04:27)
[2018-07-03] MEDS: chlordiazePOXIDE HCL 25 MG CAPSULE PO SCH ×2 (05:42→11:26)
[2018-07-03] MEDS: METHADONE 160 MG, METHADONE 10 MG, METHADONE 5 MG PO SCH (05:42)
[2018-07-03] MEDS ORDERED: METHADONE HCL 10 MG TABLET PO SCH (06:00)
[2018-07-03] MEDS: GABAPENTIN 300 MG CAPSULE (FP) PO SCH (06:14)
--- NOTE | 2018-07-03 11:20 | PN ---
[facility] CIWA - CIWA Score Nausea/Vomitin-No Nausea/No Vomiting Muscle Tremors: 3 Anxiety: 3 Agitation: 2 Paroxysmal Sweats: 3 Orientation: 0-Oriented Tacttile Disturbances: 0-None Auditory Disturbances: 0-None Visual Disturbances: 0-None Headache: 0-None Present CIWA-Ar Total Score: 11 S Progress Note (SOAP) Subjective: too sleepy tired my eyes are feeling heavy Objective: 07/03/18 11:14 Vital Signs Temperature 97.9 F 07/03/18 09:44 Pulse Rate 69 07/03/18 09:44 Respiratory Rate 18 07/03/18 09:44 Blood Pressure 119/65 07/03/18 09:44 O2 Sat by Pulse Oximetry (%) Laboratory Tests 07/02/18 07/02/18 07/02/18 07:00 07:00 07:00 WBC 5.7 RBC 3.83 Hgb 11.4 Hct 33.6 MCV 87.9 MCH 29.7 MCHC 33.8 RDW 14.8 Plt Count 261 MPV 8.1 Sodium 139 Potassium 4.0 Chloride 106 Carbon Dioxide 27 Anion Gap 6 L BUN 29 H Creatinine 0.9 Creat Clearance w eGFR > 60 Random Glucose 84 Calcium 8.1 L Total Bilirubin 0.2 AST 12 L ALT 17 Alkaline Phosphatase 85 Total Protein 6.8 Albumin 3.2 L RPR Titer Nonreactive HIV 1&2 Antibody Screen HIV P24 Antigen 07/02/18 07:00 WBC RBC Hgb Hct MCV MCH MCHC RDW Plt Count MPV Sodium Potassium Chloride Carbon Dioxide Anion Gap BUN Creatinine Creat Clearance w eGFR Random Glucose Calcium Total Bilirubin AST ALT Alkaline Phosphatase Total Protein Albumin RPR Titer HIV 1&2 Antibody Screen Negative HIV P24 Antigen Negative aaox3/abusable lying in bed no acute distress Assessment: 07/03/18 11:15 all psych orders on hold psych consultation ordered morning librium on hold will resume once pt is more awake and there are evident s/s of withdrawals noted Plan: continue to monitor increase fluids sedating medication on hold
[2018-07-03] MEDS: AMMONIUM LACTATE 12% LOTION 225 GM BOTTLE TP SCH ×2 (11:27→22:24)
[2018-07-03] MEDS: PRENATAL VITAMINS W/ FOLIC ACID TABLET (FP) PO SCH (11:27)
[2018-07-03] MEDS ORDERED: FLU VACCINE QUAD 60 MCG/0.5 ML (MDV 18-19) IM ONE (12:00)
--- NOTE | 2018-07-03 13:54 | PN ---
Psychiatric Progress Note Vital Signs: Vital Signs Period Temp Pulse Resp BP Sys/[place] Pulse Ox Last 24 Hr 97.9 F-98.3 F 62-74 18-18 105-142/60-85 Date of Session: 07/03/18 Chief Complaint:: "Why am i so tired today." HPI: Patient sedated on the unit. ROS: Anemia, Hep C Current Medications: Active Medications Generic Name Dose Route Start Last Admin Trade Name Freq PRN Reason Stop Dose Admin Acetaminophen 650 mg 07/01/18 14:03 Tylenol - PO Q4H PRN FEVER Al Hydroxide/Mg Hydroxide 30 ml 07/01/18 14:03 Mylanta Oral Suspension - PO Q6H PRN DYSPEPSIA Albuterol Sulfate 1 amp 07/01/18 14:06 Ventolin 0.083% Nebulizer Soln - NEB Q4H PRN SHORT OF BREATH/WHEEZING Buspirone HCl 10 mg 07/02/18 10:00 07/02/18 22:13 Buspar - PO 10 mg BID SCOTTY Administration Chlordiazepoxide HCl 15 mg 07/03/18 17:00 Librium - PO 07/05/18 05:01 [id number] SCOTTY Chlordiazepoxide HCl 25 mg 07/01/18 14:03 Librium - PO 07/04/18 14:02 Q4H PRN WITHDRAWAL(CONT SUBST) Chlordiazepoxide HCl 10 mg 07/04/18 17:00 Librium - PO 07/05/18 11:01 [id number] SCOTTY Colloidal Oatmeal 1 applic 07/02/18 11:14 07/02/18 12:34 Aveeno Soap - TP 1 applic DAILY PRN Administration HYGEINE Eucalyptus/Menthol/Phenol/Sorbitol 1 each 07/01/18 14:03 Cepastat Lozenge - MM Q4H PRN SORE THROAT Gabapentin 600 mg 07/02/18 14:00 07/03/18 06:14 Neurontin - PO Not Given TID SCOTTY Ibuprofen 400 mg 07/01/18 14:03 Motrin - PO Q6H PRN PAIN LEVEL 4-6 Lactic Acid 1 applic 07/02/18 11:15 07/03/18 11:27 Lac-Hydrin 12 TP Not Given BID SCOTTY Magnesium Citrate 300 ml 07/01/18 14:03 Citroma - PO Q48H PRN CONSTIPATION Magnesium Hydroxide 30 ml 07/01/18 14:03 Milk Of Magnesia - PO DAILY PRN CONSTIPATION Melatonin 5 mg 07/01/18 22:00 07/01/18 22:16 Melatonin PO 5 mg HS PRN Administration INSOMNIA Methadone HCl 160 mg/ 175 mg 07/03/18 06:00 07/03/18 05:42 Methadone HCl 10 mg/ Methadone PO 175 mg HCl 5 mg DAILY@0600 SCOTTY Administration Mirtazapine 30 mg 07/02/18 22:00 07/02/18 22:16 Remeron - PO Not Given HS SCOTTY Nicotine Polacrilex 2 mg 07/01/18 14:03 Nicorette Gum - BC Q2H PRN NICOTINE REPLACEMENT RX Multivit/Folic Acid/Iron 1 tab 07/02/18 10:00 07/03/18 11:27 Vitamins (Sjr) - PO Not Given DAILY SCOTTY Thiamine HCl 100 mg 07/01/18 22:00 07/02/18 22:13 Vitamin B1 - PO 100 mg HS SCOTTY Administration Medication(s) Change(s): Yes. Will d/c mirtzapine 30mg HS. Provider note:: Manager Product Support asked to see patient after she presented somnolent, lethargic, and sedated this morning. Medications reviewed. Manager Product Support able to speak to patient this afternoon after she presented less sedated and was able to speak to health technical writer. Patient seen by Dr. Garg on 07/02/18 who prescribed patient Mirtzapine 30mg. Patient states she does not accept mirtzapine because it is too sedating and stated her psychiatrist prescribes her 7.5 mg. Pharmacy claims reviewed and it was verified that patient was given a prescription of remeron 7.5mg. As per pharmacy claims patient is also prescribed abilify 5mg daily + Buspar 30mg TID (reports noncompliance) + Prozac 40mg (reports noncompliance). She is also on methadone maintenance of 175mg daily at the [facility]. Recommendation: 1) discontinue remeron 30mg. 2) continue buspar 10mg BID 3) order abilify 5mg daily 4) consulted with YULIYA Marcelo concerning gabapentin. Gabapentin to be lowered to 300mg TID PRN. Total face to face time:: 25 Mental Status Exam - Mental Status Exam Alert and Oriented to: Time, Place, Person Cognitive Function: Fair Patient Appearance: Well Groomed Mood: Sad Affect: Mood Congruent Patient Behavior: Fatigued Speech Pattern: Delayed Voice Loudness: Moderately Soft/Quiet Thought Process: Intact, Goal Oriented Thought Disorder: Not Present Hallucinations: Denies Suicidal Ideation: Denies Homicidal Ideation: Denies Insight/Judgement: Poor Sleep: Fair Appetite: Fair Muscle strength/Tone: Normal Gait/Station: Normal Psychiatric Treatment Plan - Problem List (1) Cocaine dependence Current Visit: Yes Qualifiers: Substance use status: uncomplicated Qualified Code(s): F14.20 - Cocaine dependence, uncomplicated (2) Nicotine dependence Current Visit: Yes Qualifiers: Nicotine product type: cigarettes Substance use status: in withdrawal Qualified Code(s): F17.213 - Nicotine dependence, cigarettes, with withdrawal (3) Opioid dependence on agonist therapy Current Visit: Yes (4) Substance induced mood disorder Current Visit: Yes (5) Mood disorder Current Visit: Yes
[2018-07-03] MEDS ORDERED: GABAPENTIN 300 MG CAPSULE (FP) PO PRN (14:59)
--- NOTE | 2018-07-03 15:06 | PN ---
S Progress Note Note: pt re-evaluated this afternoon. pt is more awake and stated that some of the medication that the psychiatrist ordered yesterday was making her too sedated. pt states she was re-evaluated by psych today and explained what medication she cannot be on. pt was also told her her libirum is on hold until tomorrow however she can request a prn if necessary. pt was also told her neurontin will be decreased to 300mg tid as needed and pt in agreement. will continue to monitor.
[2018-07-03] MEDS: busPIRone HCL 10 MG TABLET (FP) PO SCH ×2 (15:25→22:23)
[2018-07-03] MEDS ORDERED: chlordiazePOXIDE 5 MG CAPSULE PO SCH (17:00)
[2018-07-03] MEDS: THIAMINE HCL 100 MG TABLET (FP) PO SCH (22:23)
[2018-07-04] MEDS ORDERED: METHADONE HCL 10 MG TABLET ONE (04:27)
[2018-07-04] MEDS ORDERED: METHADONE HCL 5 MG TABLET ONE (04:27)
[2018-07-04] MEDS ORDERED: METHADONE HCL 40 MG DISPERSABLE TABLET ONE (04:27)
[2018-07-04] MEDS: METHADONE 160 MG, METHADONE 10 MG, METHADONE 5 MG PO SCH (05:33)
[2018-07-04] MEDS ORDERED: ARIPiprazole 5 MG TABLET (FP) PO SCH (10:00)
[2018-07-04] MEDS: PRENATAL VITAMINS W/ FOLIC ACID TABLET (FP) PO SCH (10:39)
[2018-07-04] MEDS: busPIRone HCL 10 MG TABLET (FP) PO SCH (10:40)
[2018-07-04] MEDS: AMMONIUM LACTATE 12% LOTION 225 GM BOTTLE TP SCH (10:40)
--- NOTE | 2018-07-04 12:00 | PN ---
[facility] Progress Note (SOAP) Subjective: pt is feeling so much better I am more awake very little shakes Objective: 07/04/18 11:58 Vital Signs Temperature 98.4 F 07/04/18 09:30 Pulse Rate 75 07/04/18 09:30 Respiratory Rate 18 07/04/18 09:30 Blood Pressure 101/54 L 07/04/18 09:30 O2 Sat by Pulse Oximetry (%) aaox3 ambulating no acute distress Assessment: 07/04/18 11:58 mild withdrawal sx Plan: continue detox increase fluids d/c in am @0700 as per pt request. she wants to make it to her methadone program early before they close. medical transportation was arranged.
[2018-07-04 13:12] VITALS: BP 118/61; PULSE 85; TEMP 97.9
--- NOTE | 2018-07-04 13:22 | PN ---
[facility] Progress Note Note: pt is feeling fine wants to leave today. pt will be d/c to go home as per pt request.
--- NOTE | 2018-07-04 13:23 | DS ---
[facility] Detox Discharge Summary Admission Date: 07/01/18 Discharge Date: 07/04/18 - History Present History: Alcohol Dependence - Physical Exam Results Vital Signs: Vital Signs Temperature 97.9 F 07/04/18 13:11 Pulse Rate 85 07/04/18 13:11 Respiratory Rate 18 07/04/18 13:11 Blood Pressure 118/61 07/04/18 13:11 O2 Sat by Pulse Oximetry (%) - Treatment Hospital Course: Detox Protocol Followed, Detoxed Safely, Responded well, Discharged Condition Good, Rehab Referral Accepted - Medication Discharge Medications: Ambulatory Orders Methadone [Dolophine -] 175 mg PO DAILY 11/26/15 Albuterol Sulfate Inhaler - [Ventolin HFA Inhaler -] 2 inh PO Q4H PRN #1 inhaler 11/15/17 Buspirone HCl [Buspar -] 10 mg PO BID #60 tablet 11/18/17 Buspirone HCl [Buspar -] 10 mg PO BID #60 tablet 07/02/18 Gabapentin [Neurontin -] 600 mg PO TID #90 capsule 07/02/18 Aripiprazole [Abilify] 5 mg PO DAILY 07/03/18 - AMA Did Patient Leave Against Medical Advice: No (pt going home then to her [facility] program in the am)
[2018-07-04] MEDS ORDERED: chlordiazePOXIDE HCL 10 MG CAPSULE PO SCH (17:00)
== END 2018-07-04 01:45 | disposition home or self-care (01) | DRG 773 ==
LOC: YASAS 11:43 → Y6N 17:13
PROVIDERS: ADMIT Surgery; ATTEND Surgery
PROC: HZ2ZZZZ Detoxification Services for Substance Abuse Treatment (ICD-10-PCS; principal; 2018-07-01)
DX: F10.230 Alcohol dependence with withdrawal, uncomplicated (principal); F13.230 Sedative, hypnotic or anxiolytic dependence with withdrawal, uncomplicated; F14.20 Cocaine dependence, uncomplicated; F11.20 Opioid dependence, uncomplicated; F17.213 Nicotine dependence, cigarettes, with withdrawal; F19.24 Other psychoactive substance dependence with psychoactive substance-induced mood disorder; F39 Unspecified mood [affective] disorder; D64.9 Anemia, unspecified; M54.5 Low back pain; B18.2 Chronic viral hepatitis C
CPT/HCPCS: 36415; 80053; 85027; 86593; 87389